=== PATIENT | male | born 1980 | race Two or more races ===

== ENCOUNTER 2017-01-09 00:49 | Emergency (ER) | payer SELFPAY ==
[~2017-01-09] VITALS: Ht 180.3 cm; Wt 81.6 kg
[2017-01-09] MEDS ORDERED: EPINEPHrine HCL 1 MG/1 ML AMP ONE ×2 (01:12→01:19)
[2017-01-09] MEDS ORDERED: EPINEPHrine HCL 250 ML IV ONE (01:16)
[2017-01-09] MEDS ORDERED: SODIUM BICARBONATE 8.4% INJ 50ML SYRINGE IV ONE ×2 (04:20)
[2017-01-09] MEDS ORDERED: EPINEPHrine HCL 1 MG/10 ML SYRG IV ONE ×2 (04:20)
[2017-01-09] MEDS ORDERED: CALCIUM CHLOR(10%) 100MG/ML 10ML SYRINGE IV ONE (04:20)
== END 2017-01-09 01:43 | disposition expired ==
LOC: EDBD 00:49 → ER 00:49
DX: I46.9 Cardiac arrest, cause unspecified (principal); Z91.041 Radiographic dye allergy status; B19.20 Unspecified viral hepatitis C without hepatic coma; S31.109A Unspecified open wound of abdominal wall, unspecified quadrant without penetration into peritoneal cavity, initial encounter; S21.102A Unspecified open wound of left front wall of thorax without penetration into thoracic cavity, initial encounter; W34.00XA Accidental discharge from unspecified firearms or gun, initial encounter; Y93.89 Activity, other specified; Y92.89 Other specified places as the place of occurrence of the external cause; Y99.8 Other external cause status
CPT/HCPCS: 71010; 92950; 99285; J0171; J7030